=== PATIENT | male | born 1955 | race Two or more races ===

== ENCOUNTER 2025-07-01 06:16 | Day surgery (SDC) | payer BC, SELFPAY | END 2025-07-01 12:13 | disposition home or self-care (01) | LOC: GI 06:16 | PROVIDERS: ATTENDING PHYSICIAN Surgery | DX: Z12.11 Encounter for screening for malignant neoplasm of colon (principal); K62.1 Rectal polyp; D12.3 Benign neoplasm of transverse colon; Z80.0 Family history of malignant neoplasm of digestive organs; Z86.0101 Personal history of adenomatous and serrated colon polyps | CPT/HCPCS: 45384; 45381; 45380; 88305 ==